=== PATIENT | male | born 1985 | race African-American/Black ===

== ENCOUNTER 2017-04-19 10:25 | Emergency (ER) | payer OTHER ==
[~2017-04-19] VITALS: Ht 172.7 cm; Wt 102.1 kg
[2017-04-19] MEDS ORDERED: CYCLOBENZAPRINE5 MG PO (12:12)
[2017-04-19] MEDS ORDERED: MOBIC15 MG PO (12:12)
[2017-04-19 12:30] VITALS: BP 103/70
== END 2017-04-19 12:47 | disposition home or self-care (01) ==
LOC: ER 10:25
DX: S20.212A Contusion of left front wall of thorax, initial encounter (principal); S70.02XA Contusion of left hip, initial encounter; V47.5XXA Car driver injured in collision with fixed or stationary object in traffic accident, initial encounter; Y93.I9 Activity, other involving external motion; Y92.410 Unspecified street and highway as the place of occurrence of the external cause; Y99.9 Unspecified external cause status